=== PATIENT | female | born 1975 | race Caucasian/White ===

== ENCOUNTER 2019-04-19 14:40 | Outpatient (CLI) | payer MEDICARE, SELFPAY ==
--- NOTE | 2019-04-19 14:42 | MM_ITS ---
WS: [id number] BILATERAL DIGITAL SCREENING MAMMOGRAPHY WITH CAD CLINICAL INFORMATION: SCREENING HISTORY: Screening mammogram. COMPARISON: February 06, 2016 TECHNIQUE: Bilateral CC and MLO views. FINDINGS: The breasts are composed of heterogeneous fibroglandular density tissue, which can limit the detectio n of small underlying mass lesions. No suspicious mass, asymmetry, calcifications, or architectural d istortion. No evidence of malignancy. MM/[place] [id number] IMPRESSION: BI-RADS: 1-Negative FOLLOW UP: 1 Year Follow-up Recommend return to annual screening mammography.
== END 2019-04-19 14:41 | disposition home or self-care (01) ==
LOC: RADSHAW 14:40
PROVIDERS: Family Provider Family Medicine; PCP Family Medicine; Visit Provider Family Medicine
DX: Z12.31 Encounter for screening mammogram for malignant neoplasm of breast (principal)
CPT/HCPCS: 77067

== ENCOUNTER 2019-10-26 20:49 | Emergency (ER) | payer MEDICARE, SELFPAY ==
[2019-10-26 20:58] VITALS: BP 154/88; PULSE 98; RESP 20; TEMP 37.3; O2SAT 96; BMI 25.0
--- NOTE | 2019-10-26 21:05 | XRR_ITS ---
PROCEDURE INFORMATION: Exam: XR Chest, 1 View Exam date and time: 10/26/2019 10:07 PM Age: 44 years old Clinical indication: Type not specified; Patient HX: Chest pain x 1 day; Additional info: Cp TECHNIQUE: Imaging protocol: XR of the chest Views: 1 view. COMPARISON: CR Chest 1 [place] [id number] 08/23/2016 1:10 PM FINDINGS: Lungs: Unremarkable. No consolidation. Pleural space: Unremarkable. No pleural effusion. No pneumothorax. Heart/Mediastinum: Unremarkable. No cardiomegaly. Bones/joints: Unremarkable. XR/XR chest 1V portable [id number] IMPRESSION: No acute findings.
--- NOTE | 2019-10-26 21:05 | ECG_ITS ---
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 Measurements Intervals [place] Rate: 103 P: 66 CO: 108 QRS: 73 QRSD: 82 T: 27 QT: 327 QTc: 430 Interpretive Statements SINUS TACHYCARDIA WITH SHORT CO INTERVAL NONSPECIFIC T-WAVE ABNORMALITY Compared to ECG 08/23/2016 13:07:30 Short CO interval now present T-wave abnormality still present Electronically Signed On 10-28-2019 8:28:47 CDT by Ludmila Hanks M.D. [id number] f
[2019-10-26 22:09] LABS: Basophils % 0.2 %; Eosinophils # 0.1 10^3/uL (0.0-0.8); Eosinophils % 1.1 %; Hematocrit 40.6 % (37.0-47.0); Hemoglobin 13.3 g/dL (11.5-15.3); Lymphocytes # 1.5 10^3/uL (0.8-4.8); Lymphocytes % 28.2 %; Mean Corpuscular HGB Conc 32.8 g/dL (30.0-36.0); Mean Corpuscular Hemoglobin 28.8 pg (28.0-34.0); Mean Corpuscular Volume 87.9 fL (81-99); Mean Platelet Volume 9.4 fL (7.4-10.4); Monocytes # 0.5 10^3/uL (0.2-0.9); Monocytes % 10.1 %; Neutrophils # 3.22 10^3/uL (1.8-7.7); Neutrophils % 60.2 %; Nucleated Red Blood Cells % 0 %; Platelet Count 287 10^3/cmm (130-400); Red Blood Count 4.62 10^6/uL (4.1-5.3); White Blood Count 5.4 10^3/uL (4.0-10.0)
[2019-10-26 22:24] LABS: Alanine Aminotransferase 14 U/L (0-33); Albumin Level 4.5 g/dL (3.5-5.2); Alkaline Phosphatase 45 IU/L (35-105); Anion Gap 12.9 (5-19); Aspartate Amino Transferase 17 U/L (0-32); Blood Urea Nitrogen 11 mg/dL (6-20); Calcium 8.9 mg/dL (8.5-10.5); Carbon Dioxide 27 mmol/L (22-29); Chloride 103 mmol/L (98-107); Creatinine Clr Calc Pharmacy 151.1354; Globulin 2.4 g/dL (1.3-4.6); Glomerular Filtration Rate 134.7 mL/min (90-130); Glucose 99 mg/dL (65-115); Osmolality Calculated 287 mOsm/kg (285-295); Potassium 3.9 mmol/L (3.5-5.1); Sodium 139 mmol/L (136-145); Total Bilirubin 0.2 mg/dL (0.15-1.2); Total Protein 6.9 g/dL (6.6-8.7)
[2019-10-26 22:25] LABS: Troponin(5th) Baseline 6 ng/L (0-10)
[2019-10-26 22:31] VITALS: BP 125/90; PULSE 78; RESP 16; O2SAT 96
--- NOTE | 2019-10-26 22:34 | PC.NURSE ---
patient ambulated to bathroom ith clean catch package with education given by nurse
--- NOTE | 2019-10-26 22:49 | W.ED.ARRPALP ---
HPI - Arrhythmia/Palpitations General: Chief Complaint: Arrhythmia/Palpitations Stated Complaint: heart racing/palpitations/chest pains Time Seen by Provider: 10/26/19 22:18 Source: patient Mode of arrival: ambulatory Limitations: no limitations History of Present Illness: HPI narrative: 44-year-old female states she has been having palpitations over the last 2 days along with some chest pains. States pain is been sharp in nature. She states that she had severe palpitations earlier before arrival. States she is feeling improved currently. Denies any shortness of breath. Denies any worsening or improving factors. Associated symptoms: Deny nausea or vomiting Review of Systems Const: Denies: fever(s), chills, body aches or change in appetite Eyes: Denies: blurry vision or eye discomfort ENMT: Denies: throat pain or dental pain Card: Reports: chest pain and palpitations Resp: Denies: dyspnea GI: Denies: abdominal pain, nausea, vomiting or diarrhea : Denies: dysuria Musc: Denies: neck pain or back pain Skin/Breast: Denies: rash Neuro: Denies: headache(s) Psych: Denies: depression Leonel/Lymph: Denies: easy bruising All/Imm: Denies: urticaria Physical Exam Const: COMMON NORMALS: no acute distress, patient oriented x3 and healthy appearing HENMT: COMMON NORMALS: normocephalic and atraumatic HEAD & SCALP: normocephalic and atraumatic Eye: COMMON NORMALS: Equal, round and reactive pupils present and EOMs intact bilaterally PUPIL: Yes Equal, round and reactive pupils present Neck/C-Spine: COMMON NORMALS: full ROM and supple Chest: COMMONS NORMALS: normal inspection of the chest and normal palpation of entire chest wall Resp: COMMON NORMALS: normal respiratory effort, No retractions, No use of accessory muscles and clear to auscultation bilaterally AUSCULTATION: clear to auscultation bilaterally Cardio: COMMON NORMALS: regular rate, regular rhythm and No murmurs present (Cardio) RATE: regular rate RHYTHM: regular rhythm GI: COMMON NORMALS: Normal to inspection, nondistended, normoactive bowel sounds present, Soft to palpation, non-tender and no masses PALPATION: Yes Soft to palpation Extremity: COMMON NORMALS: normal to inspection and full ROM Neuro: COMMON NORMALS: patient oriented x3, moves all extremities and no focal motor deficits Psych: COMMON NORMALS: mental status grossly normal, Normal thought process present and cooperative THOUGHT PROCESS: Normal thought process present Skin: COMMON NORMALS: no rashes or lesions noted and no wounds GENERAL SKIN EXAM: no rashes or lesions noted Course Vital Signs: Vital signs: Vital Signs Temperature 99.2 F 10/26/19 20:58 Pulse Rate 70 10/27/19 00:04 Respiratory Rate 16 10/27/19 00:04 Blood Pressure 122/79 10/27/19 00:04 Pulse Oximetry 96 10/27/19 00:04 MDM - Arrhythmia/Palpitations MDM Narrative: Medical decision making narrative: Patient presents here with palpitations. Her EKGs and troponins here are normal. Patient is well-appearing here and is stable for discharge. She is to follow-up with PCP and is likely needing a Holter monitor outpatient. I informed her of this. She is to return if worsening. She understands and agrees to plan. Lab Data: Labs: Lab Results 10/26/19 10/26/19 10/26/19 Range/Units 21:54 21:54 21:54 WBC 5.4 (4.0-10.0) 10^3/ uL RBC 4.62 (4.1-5.3) 10^6/u L Hgb 13.3 (11.5-15.3) g/dL Hct 40.6 (37.0-47.0) % MCV 87.9 (81-99) fL MCH 28.8 (28.0-34.0) pg MCHC 32.8 (30.0-36.0) g/dL RDW 12.0 L (12.1-15.1) % Plt Count 287 (130-400) 10^3/c mm MPV 9.4 (7.4-10.4) fL Neut % (Auto) 60.2 % Lymph % (Auto) 28.2 % [place] % (Auto) 10.1 % Eos % (Auto) 1.1 % Baso % (Auto) 0.2 % Neut # (Auto) 3.22 (1.8-7.7) 10^3/u L Lymph # (Auto) 1.5 (0.8-4.8) 10^3/u L [place] # (Auto) 0.5 (0.2-0.9) 10^3/u L Eos # (Auto) 0.1 (0.0-0.8) 10^3/u L Baso # (Auto) 0.0 (0.0-0.1) 10^3/u L Nucleated RBC % (a uto) 0 % Nucleated RBCs # 0.0 /100WBC Sodium 139 (136-145) mmol/L Potassium 3.9 (3.5-5.1) mmol/L Chloride 103 (98-107) mmol/L Carbon Dioxide 27 (22-29) mmol/L Anion Gap 12.9 (5-19) BUN 11 (6-20) mg/dL Creatinine 0.5 (0.5-0.9) mg/dL GFR Calculation 134.7 H (90-130) mL/min Glucose 99 (65-115) mg/dL Calculated Osmolal ity 287 (285-295) mOsm/k g Calcium 8.9 (8.5-10.5) mg/dL Total Bilirubin 0.2 (0.15-1.2) mg/dL AST 17 (0-32) U/L ALT 14 (0-33) U/L Alkaline Phosphata se 45 (35-105) IU/L Troponin T Baselin e 6 (0-10) ng/L Troponin T 120 Min geoffrey (0-10) ng/L Delta Troponin T (0-10) ABS# Total Protein 6.9 (6.6-8.7) g/dL Albumin 4.5 (3.5-5.2) g/dL Globulin 2.4 (1.3-4.6) g/dL Urine Color (Yellow) Urine Appearance (CLEAR) Urine pH (5-7) Ur Specific Gravit y (1.005-1.030) Urine Protein (Negative) Urine Glucose (UA) (Normal) Urine Ketones (Negative) Urine Blood (Negative) Urine Nitrate (Negative) Urine Bilirubin (Negative) Urine Urobilinogen (Negative) mg/dL Ur Leukocyte Ame ase (Negative) Urine RBC (0-2) /hpf Urine WBC (0-5) /hpf Ur Squamous Epith Cells (0-5) /hpf Amorphous Sediment Urine Bacteria (NONE) /hpf 10/26/19 10/26/19 Range/Units 22:39 23:54 WBC (4.0-10.0) 10^3/ uL RBC (4.1-5.3) 10^6/u L Hgb (11.5-15.3) g/dL Hct (37.0-47.0) % MCV (81-99) fL MCH (28.0-34.0) pg MCHC (30.0-36.0) g/dL RDW (12.1-15.1) % Plt Count (130-400) 10^3/c mm MPV (7.4-10.4) fL Neut % (Auto) % Lymph % (Auto) % [place] % (Auto) % Eos % (Auto) % Baso % (Auto) % Neut # (Auto) (1.8-7.7) 10^3/u L Lymph # (Auto) (0.8-4.8) 10^3/u L [place] # (Auto) (0.2-0.9) 10^3/u L Eos # (Auto) (0.0-0.8) 10^3/u L Baso # (Auto) (0.0-0.1) 10^3/u L Nucleated RBC % (a uto) % Nucleated RBCs # /100WBC Sodium (136-145) mmol/L Potassium (3.5-5.1) mmol/L Chloride (98-107) mmol/L Carbon Dioxide (22-29) mmol/L Anion Gap (5-19) BUN (6-20) mg/dL Creatinine (0.5-0.9) mg/dL GFR Calculation (90-130) mL/min Glucose (65-115) mg/dL Calculated Osmolal ity (285-295) mOsm/k g Calcium (8.5-10.5) mg/dL Total Bilirubin (0.15-1.2) mg/dL AST (0-32) U/L ALT (0-33) U/L Alkaline Phosphata se (35-105) IU/L Troponin T Baselin e (0-10) ng/L Troponin T 120 Min geoffrey 6.00 (0-10) ng/L Delta Troponin T 0 (0-10) ABS# Total Protein (6.6-8.7) g/dL Albumin (3.5-5.2) g/dL Globulin (1.3-4.6) g/dL Urine Color Straw (Yellow) Urine Appearance Clear (CLEAR) Urine pH 6.5 (5-7) Ur Specific Gravit y 1.010 (1.005-1.030) Urine Protein Neg (Negative) Urine Glucose (UA) Norm (Normal) Urine Ketones Negative (Negative) Urine Blood Neg (Negative) Urine Nitrate Negative (Negative) Urine Bilirubin Neg (Negative) Urine Urobilinogen Norm (Negative) mg/dL Ur Leukocyte Ame ase Negative (Negative) Urine RBC None (0-2) /hpf Urine WBC None (0-5) /hpf Ur Squamous Epith Cells None (0-5) /hpf Amorphous Sediment Not Reportable Urine Bacteria None (NONE) /hpf Imaging Data^: CXR: Attestation: I personally reviewed and interpreted this imaging study as follows: My impression: no acute abnormality EKG Data^: EKG 1: Attestation: I personally reviewed and interpreted this EKG as follows: EKG interpretation date: 10/26/19 EKG interpretation time: 21:06 Interpretation: sinus tach hr [address] or t wave abnormalities qrs 82 qtc 397 Discharge Plan Discharge Patient Disposition: Home Clinical Impression: Palpitations Condition: Stable Discharge Orders: Discharge Order (Routine); Ordered 10/27/19 Ordered By: Britney Gamble Referrals: Leonie Snyder MD [Primary Care Provider] - Discharge Diet: Advance as tolerated Discharge Activity: Resume usual activity Patient Instructions: Palpitations (ED) Coding Level of Care Code ED Gas Station Supervisor for Chg Fwd Exam Comprehensive
[2019-10-26 23:02] LABS: Bilirubin Urine Neg (Negative); Blood Urine Neg (Negative); Glucose Urine UA Norm (Normal); Ketones Urine Negative (Negative); Leukocyte Esterase Urine Negative (Negative); Nitrate Urine Negative (Negative); Protein Urine Neg (Negative); Urine Appearance Clear (CLEAR); Urine Color Straw (Yellow); Urobilinogen Urine Norm (Negative); pH Urine 6.5 (5-7)
--- NOTE | 2019-10-26 23:05 | ECG_ITS ---
[facility] Test Date: 2019-10-26 Pat Name: Yanique Oconnell Department: Room: Gender: Female Desktop Support Consultant: : 1975 Requested By: Britney Gamble Order Number: [id number] Juma MD: Ludmila Hanks M.D. Measurements Intervals [place] Rate: 71 P: 41 MT: 147 QRS: 66 QRSD: 86 T: 51 QT: 372 QTc: 407 Interpretive Statements SINUS RHYTHM Compared to ECG 08/23/2016 13:07:30 Sinus tachycardia no longer present T-wave abnormality no longer present Electronically Signed On 10-28-2019 9:08:11 CDT by Ludmila Hanks M.D. [id number]
[2019-10-26 23:25] VITALS: BP 127/74; PULSE 71; RESP 16; O2SAT 94
[2019-10-27 00:04] VITALS: BP 122/79; PULSE 70; RESP 16; O2SAT 96
[2019-10-27 00:27] LABS: Troponin 5 2HR Delta 0 ABS# (0-10)
[2019-10-27 00:49] VITALS: BP 109/71; PULSE 74; RESP 17; O2SAT 96
== END 2019-10-27 00:49 | disposition home or self-care (01) ==
PROVIDERS: Emergency Provider Emergency Medicine; PCP Family Medicine
DX: R00.2 Palpitations (principal)
CPT/HCPCS: 12345; 36415; 71045; 80053; 81001; 84484; 85025; 93005; 99283; 99284

== ENCOUNTER 2020-01-19 07:46 | Outpatient (CLI) | payer MEDICARE, SELFPAY ==
--- NOTE | 2020-01-19 | CT_ITS ---
WS: [id number] CT HEAD TECHNIQUE: Noncontrast and contrast-enhanced CT of the head. CLINICAL INFORMATION: CONCUSSION WITH LOC COMPARISON: MRI 2016 DLP: 2116.[address] scans at [facility] use at least one of these dose optimization techniques: automat ed exposure control; mA and/or kV adjustment per patient size (includes targeted exams where dose is matched to clinical indication); or iterative reconstruction. FINDINGS: No evidence of intracranial hemorrhage or mass effect. Ventricular system and basal cisterns are shaw nt. Normal graham-white differentiation. No abnormal intracranial enhancement. Mastoid air cells and paranasal sinuses are well aerated. Parti al opacification of sphenoid sinus. Prior postoperative changes occipital craniectomy. CT/CT head wo/w con [id number] IMPRESSION: 1. No evidence of intracranial hemorrhage or mass effect. 2. No abnormal intracranial enhancement. 3. Prior occipital craniectomy. 4. No acute intracranial findings.
[2020-01-19] MEDS: iohexol 300 mg/mL 100 mL Btl IV (08:46)
== END 2020-01-19 07:47 | disposition home or self-care (01) ==
LOC: RADWPI 07:50
PROVIDERS: PCP Family Medicine; Visit Provider Family Medicine
DX: S06.0X9A Concussion with loss of consciousness of unspecified duration, initial encounter (principal); R42 Dizziness and giddiness; X58.XXXA Exposure to other specified factors, initial encounter
CPT/HCPCS: 70470; Q9967

== ENCOUNTER 2020-01-21 16:41 | Emergency (ER) | payer MEDICARE, SELFPAY ==
--- NOTE | 2020-01-21 16:42 | XRR_ITS ---
PROCEDURE INFORMATION: Exam: XR Chest, 1 View Exam date and time: 01/21/2020 5:02 PM Age: 44 years old Clinical indication: Chest pain; Type not specified; Additional info: Cp TECHNIQUE: Imaging protocol: XR of the chest Views: 1 view. COMPARISON: CR XR chest 1V portable [id number] 10/26/2019 9:57 PM FINDINGS: Lungs: Unremarkable. No consolidation. Pleural space: Unremarkable. No pleural effusion. No pneumothorax. Heart/Mediastinum: Unremarkable. No cardiomegaly. Bones/joints: Unremarkable. XR/XR chest 1V portable [id number] IMPRESSION: No acute findings.
--- NOTE | 2020-01-21 16:43 | ECG_ITS ---
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
[2020-01-21 16:46] VITALS: BP 158/85; PULSE 96; RESP 18; TEMP 36.2; O2SAT 97; BMI 25.0
[2020-01-21 17:00] VITALS: BP 115/81; PULSE 98; RESP 19; O2SAT 92
--- NOTE | 2020-01-21 17:00 | ED_ITS ---
HPI - Chest Pain General: Chief Complaint: Chest Pain Stated Complaint: CP, JAW PAIN Time Seen by Provider: 01/21/20 16:42 Source: patient Mode of arrival: ambulatory Limitations: no limitations History of Present Illness: HPI narrative: 44-year-old female states starting today at 730 she is having some chest pain that went to her left arm along with palpitations. States she had SVT in the past this felt a little different. She does have some tachycardia here and heart rate was currently 108. She denies any shortness of breath denies any worsening or improving factors. She has had no vomiting or diarrhea. Associated symptoms: Reports palpitations; Deny abdominal pain, dyspnea, fever(s), nausea or vomiting Review of Systems Const: Denies: fever(s), chills, body aches or change in appetite Eyes: Denies: blurry vision or eye discomfort ENMT: Denies: throat pain or dental pain Card: Reports: chest pain and palpitations Resp: Denies: dyspnea GI: Denies: abdominal pain, nausea, vomiting or diarrhea : Denies: dysuria Musc: Denies: neck pain or back pain Skin/Breast: Denies: rash Neuro: Denies: headache(s) Psych: Denies: depression Leonel/Lymph: Denies: easy bruising All/Imm: Denies: urticaria Physical Exam Const: COMMON NORMALS: no acute distress, patient oriented x3 and healthy appearing HENMT: COMMON NORMALS: normocephalic and atraumatic HEAD & SCALP: normocephalic and atraumatic Eye: COMMON NORMALS: Equal, round and reactive pupils present and EOMs intact bilaterally PUPIL: Yes Equal, round and reactive pupils present Neck/C-Spine: COMMON NORMALS: full ROM and supple Chest: COMMONS NORMALS: normal inspection of the chest and normal palpation of entire chest wall Resp: COMMON NORMALS: normal respiratory effort, No retractions, No use of accessory muscles and clear to auscultation bilaterally AUSCULTATION: clear to auscultation bilaterally Cardio: COMMON NORMALS: regular rhythm and No murmurs present (Cardio) RATE: tachycardic RHYTHM: regular rhythm GI: COMMON NORMALS: Normal to inspection, nondistended, normoactive bowel sounds present, Soft to palpation, non-tender and no masses PALPATION: Yes Soft to palpation Extremity: COMMON NORMALS: normal to inspection and full ROM Neuro: COMMON NORMALS: patient oriented x3, moves all extremities and no focal motor deficits Psych: COMMON NORMALS: mental status grossly normal, Normal thought process present and cooperative THOUGHT PROCESS: Normal thought process present Skin: COMMON NORMALS: no rashes or lesions noted and no wounds GENERAL SKIN EXAM: no rashes or lesions noted Course Vital Signs: Vital signs: Vital Signs Temperature 97.2 F L 01/21/20 16:46 Pulse Rate 86 01/21/20 19:37 Respiratory Rate 18 01/21/20 19:37 Blood Pressure 122/81 01/21/20 19:37 Pulse Oximetry 98 01/21/20 19:37 MDM - Chest Pain MDM Narrative: Medical decision making narrative: Yanique presents here with chest pain is atypical in nature. Both her EKGs and troponins are normal here and her D-dimer is normal as well. She has no signs of dissection or acute coronary syndrome. She is stable for discharge and is to follow-up with PCP in 3 to 5 days return to ER if worsening. She understands and agrees to plan. Lab Data: Labs: Lab Results 01/21/20 01/21/20 01/21/20 Range/Units 17:10 17:10 17:10 WBC 7.6 (4.0-10.0) 10^3/ uL RBC 4.88 (4.1-5.3) 10^6/u L Hgb 13.9 (11.5-15.3) g/dL Hct 42.7 (37.0-47.0) % MCV 87.5 (81-99) fL MCH 28.5 (28.0-34.0) pg MCHC 32.6 (30.0-36.0) g/dL RDW 11.8 L (12.1-15.1) % Plt Count 296 (130-400) 10^3/c mm MPV 9.5 (7.4-10.4) fL Neut % (Auto) 73.3 % Lymph % (Auto) 19.3 % [place] % (Auto) 6.5 % Eos % (Auto) 0.5 % Baso % (Auto) 0.1 % Neut # (Auto) 5.54 (1.8-7.7) 10^3/u L Lymph # (Auto) 1.5 (0.8-4.8) 10^3/u L [place] # (Auto) 0.5 (0.2-0.9) 10^3/u L Eos # (Auto) 0.0 (0.0-0.8) 10^3/u L Baso # (Auto) 0.0 (0.0-0.1) 10^3/u L Nucleated RBC % (a uto) 0 % Nucleated RBCs # 0.0 /100WBC D-Dimer (0-0.59) ug/mIFE U Sodium 140 (136-145) mmol/L Potassium 4.0 (3.5-5.1) mmol/L Chloride 104 (98-107) mmol/L Carbon Dioxide 25 (22-29) mmol/L Anion Gap 15.0 (5-19) BUN 13 (6-20) mg/dL Creatinine 0.4 L (0.5-0.9) mg/dL GFR Calculation 174.2 H (90-130) mL/min Glucose 102 (65-115) mg/dL Calculated Osmolal ity 290 (285-295) mOsm/k g Calcium 9.1 (8.5-10.5) mg/dL Total Bilirubin 0.2 (0.15-1.2) mg/dL AST 14 (0-32) U/L ALT 11 (0-33) U/L Alkaline Phosphata se 51 (35-105) IU/L Troponin T Baselin e 6 (0-10) ng/L Troponin T 120 Min geoffrey (0-10) ng/L Delta Troponin T (0-10) ABS# Total Protein 6.5 L (6.6-8.7) g/dL Albumin 4.4 (3.5-5.2) g/dL Globulin 2.1 (1.3-4.6) g/dL 01/21/20 01/21/20 Range/Units 17:10 18:54 WBC (4.0-10.0) 10^3/ uL RBC (4.1-5.3) 10^6/u L Hgb (11.5-15.3) g/dL Hct (37.0-47.0) % MCV (81-99) fL MCH (28.0-34.0) pg MCHC (30.0-36.0) g/dL RDW (12.1-15.1) % Plt Count (130-400) 10^3/c mm MPV (7.4-10.4) fL Neut % (Auto) % Lymph % (Auto) % [place] % (Auto) % Eos % (Auto) % Baso % (Auto) % Neut # (Auto) (1.8-7.7) 10^3/u L Lymph # (Auto) (0.8-4.8) 10^3/u L [place] # (Auto) (0.2-0.9) 10^3/u L Eos # (Auto) (0.0-0.8) 10^3/u L Baso # (Auto) (0.0-0.1) 10^3/u L Nucleated RBC % (a uto) % Nucleated RBCs # /100WBC D-Dimer 0.32 (0-0.59) ug/mIFE U Sodium (136-145) mmol/L Potassium (3.5-5.1) mmol/L Chloride (98-107) mmol/L Carbon Dioxide (22-29) mmol/L Anion Gap (5-19) BUN (6-20) mg/dL Creatinine (0.5-0.9) mg/dL GFR Calculation (90-130) mL/min Glucose (65-115) mg/dL Calculated Osmolal ity (285-295) mOsm/k g Calcium (8.5-10.5) mg/dL Total Bilirubin (0.15-1.2) mg/dL AST (0-32) U/L ALT (0-33) U/L Alkaline Phosphata se (35-105) IU/L Troponin T Baselin e (0-10) ng/L Troponin T 120 Min geoffrey 6.00 (0-10) ng/L Delta Troponin T 0 (0-10) ABS# Total Protein (6.6-8.7) g/dL Albumin (3.5-5.2) g/dL Globulin (1.3-4.6) g/dL Imaging Data^: CXR: Attestation: I personally reviewed and interpreted this imaging study as follows: My impression: no abnormalities EKG Data^: EKG 1: Attestation: I personally reviewed and interpreted this EKG as follows: EKG interpretation date: 01/21/20 EKG interpretation time: 17:00 Interpretation: nsr hr [address] or t wave abnormalities qrs 72 [id number] EKG 2: Attestation: I personally reviewed and interpreted this EKG as follows: EKG interpretation date: 01/21/20 EKG interpretation time: 18:49 Interpretation: nsr hr [address] or twave abnormalities qrs 78 qtc 402 Discharge Plan Discharge Patient Disposition: Home Clinical Impression: Chest pain Condition: Stable Discharge Orders: Discharge ED (Routine); Ordered 01/21/20 Ordered By: Britney Gamble Referrals: Leonie Snyder MD [Primary Care Provider] - 1-3 days Discharge Diet: Advance as tolerated Discharge Activity: Resume usual activity Patient Instructions: Chest Pain (ED) Coding Level of Care Code ED Computer Technology Trainer for Chg Fwd Exam Comprehensive
[2020-01-21] MEDS: LORazepam 2 mg/mL INJ 1 mL 1 MG IVP (17:06)
[2020-01-21 17:22] LABS: Basophils % 0.1 %; Eosinophils % 0.5 %; Hematocrit 42.7 % (37.0-47.0); Hemoglobin 13.9 g/dL (11.5-15.3); Lymphocytes # 1.5 10^3/uL (0.8-4.8); Lymphocytes % 19.3 %; Mean Corpuscular HGB Conc 32.6 g/dL (30.0-36.0); Mean Corpuscular Hemoglobin 28.5 pg (28.0-34.0); Mean Corpuscular Volume 87.5 fL (81-99); Mean Platelet Volume 9.5 fL (7.4-10.4); Monocytes # 0.5 10^3/uL (0.2-0.9); Monocytes % 6.5 %; Neutrophils # 5.54 10^3/uL (1.8-7.7); Neutrophils % 73.3 %; Nucleated Red Blood Cells % 0 %; Platelet Count 296 10^3/cmm (130-400); Red Blood Count 4.88 10^6/uL (4.1-5.3); Red Cell Distribution Width 11.8 % (12.1-15.1); White Blood Count 7.6 10^3/uL (4.0-10.0)
[2020-01-21 17:30] VITALS: BP 109/77; PULSE 83; RESP 19; O2SAT 93
[2020-01-21 17:35] LABS: D Dimer 0.32 ug/mIFEU (0-0.59)
[2020-01-21 17:44] LABS: Alanine Aminotransferase 11 U/L (0-33); Albumin Level 4.4 g/dL (3.5-5.2); Alkaline Phosphatase 51 IU/L (35-105); Aspartate Amino Transferase 14 U/L (0-32); Blood Urea Nitrogen 13 mg/dL (6-20); Calcium 9.1 mg/dL (8.5-10.5); Carbon Dioxide 25 mmol/L (22-29); Chloride 104 mmol/L (98-107); Globulin 2.1 g/dL (1.3-4.6); Glomerular Filtration Rate 174.2 mL/min (90-130); Glucose 102 mg/dL (65-115); Osmolality Calculated 290 mOsm/kg (285-295); Sodium 140 mmol/L (136-145); Total Bilirubin 0.2 mg/dL (0.15-1.2); Total Protein 6.5 g/dL (6.6-8.7)
[2020-01-21 17:45] LABS: Troponin(5th) Baseline 6 ng/L (0-10)
[2020-01-21 19:23] LABS: Troponin 5 2HR Delta 0 ABS# (0-10)
[2020-01-21 19:37] VITALS: BP 122/81; PULSE 86; RESP 18; O2SAT 98
--- NOTE | 2020-01-21 22:43 | ECG_ITS ---
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
== END 2020-01-21 19:38 | disposition home or self-care (01) ==
PROVIDERS: Emergency Provider Emergency Medicine; PCP Family Medicine
DX: R07.9 Chest pain, unspecified (principal)
CPT/HCPCS: 12345; 71045; 80053; 84484; 85025; 85378; 93005; 96374; 99282; 99284; J2060

== ENCOUNTER 2020-12-30 13:51 | Outpatient (CLI) | payer MEDICARE, SELFPAY ==
--- NOTE | 2020-12-30 13:55 | XR_ITS ---
WS: [id number] PROCEDURE: XR chest 2V* [id number] CLINICAL INFORMATION: CHONDROCOSTAL JUNCTION SYNDROME, COSTOCHONDRITIS COMPARISON: January 21, 2020 FINDINGS: Heart: Normal cardiac silhouette. Lungs: Lungs are clear. No consolidation or pleural fluid. No acute pulmonary infiltrates. Bones: Normal visualized bony structures. XR/XR chest 2V* [id number] IMPRESSION: Normal chest
== END 2020-12-30 13:52 | disposition home or self-care (01) ==
PROVIDERS: PCP Family Medicine; Visit Provider Family Medicine
DX: M94.0 Chondrocostal junction syndrome [Tietze] (principal)
CPT/HCPCS: 71046

== ENCOUNTER 2021-02-11 15:05 | Outpatient (CLI) | payer MEDICARE, SELFPAY ==
--- NOTE | 2021-02-11 15:12 | US_ITS ---
WS: [id number] TRANSABDOMINAL PELVIC AND TRANSVAGINAL PELVIC ULTRASOUND HISTORY: DUB/ABNORMAL UTERINE VAGINAL BLEEDING COMPARISON: None available. Uterus: 7.7 cm x 4.5 cm x 3.4 cm. Normal size anteverted uterus. No fibroid or mass. Small amount of fluid along the cervical canal. Endometrium: 1.4 cm. Normal size endometrium. Right ovary: 4.2 cm x 2.9 cm x 3.8 cm. There is a large complex cyst associated with the RIGHT ovary. Cyst measures 3.7 x 2.7 x 3.2 cm. There is a thin septation or 2 separate adjacent cysts. There is t hrough transmission. No increased vascularity. The normal adjacent ovary does contain normal vascular ity. Left ovary: 1.6 cm x 1.4 cm x 1.6 cm. Small caliber. Vascularity is difficult to visualize but this i s probably due to the position and small caliber. No enlargement. No free fluid. US/US pelvic with transvaginal IMPRESSION: 1. Complex RIGHT ovarian cyst measures 3.7 x 2.7 x 3.2 cm. 2. Normal endometrium.
== END 2021-02-11 15:06 | disposition home or self-care (01) ==
LOC: RAD 15:09
PROVIDERS: PCP Family Medicine; Visit Provider Family Medicine
DX: N93.8 Other specified abnormal uterine and vaginal bleeding (principal); N83.291 Other ovarian cyst, right side
CPT/HCPCS: 76830; 76856

== ENCOUNTER → 2021-03-20 14:51 | Outpatient (BNVA) | payer MEDICARE, SELFPAY | PROVIDERS: PCP Family Medicine; Visit Provider Obstetrics & Gynecology | DX: N93.9 Abnormal uterine and vaginal bleeding, unspecified (principal) | CPT/HCPCS: 81500; 88305 ==

== ENCOUNTER 2021-05-19 06:47 | Outpatient (CLI) | payer MEDICARE, SELFPAY ==
--- NOTE | 2021-05-19 07:15 | US_ITS ---
WS: [id number] TRANSABDOMINAL PELVIC AND TRANSVAGINAL PELVIC ULTRASOUND HISTORY: Follow-up ovarian cyst. RIGHT. COMPARISON: 02/11/2021 Uterus: 8.1 cm x 3.9 cm x 3.3 cm. Normal size anteverted uterus. There is a small amount of fluid in the cervical canal. Endometrium: 1.1 cm. Normal trilaminar appearance of the endometrium. No mass or increased vascularit y. Right ovary: 2.9 cm x 1.5 cm x 2.7 cm. Normal size and Doppler. The previously described complex RIGH T ovarian cyst has resolved. Left ovary: 1.2 cm x 1.5 cm x 1.0 cm. Small ovary. No mass. Normal vascularity. No free fluid in the cul-de-sac. US/US pelvic with transvaginal IMPRESSION: 1. Interval complete resolution of the recently described complex RIGHT ovaria n cyst. 2. Normal pelvic ultrasound.
== END 2021-05-19 06:48 | disposition home or self-care (01) ==
LOC: RAD 06:48
PROVIDERS: PCP Family Medicine; Visit Provider Obstetrics & Gynecology
DX: N83.8 Other noninflammatory disorders of ovary, fallopian tube and broad ligament (principal)
CPT/HCPCS: 76830; 76856

== ENCOUNTER 2021-06-12 13:54 | Outpatient (CLI) | payer MEDICARE, SELFPAY ==
--- NOTE | 2021-06-12 14:25 | MM_ITS ---
WS: [id number] BILATERAL 3D TOMOSYNTHESIS DIGITAL SCREENING MAMMOGRAPHY WITH CAD CLINICAL INFORMATION: SCREENING HISTORY: Screening mammogram. Pain and soreness COMPARISON: April 19, 2019 TECHNIQUE: Bilateral CC and MLO views. FINDINGS: The breasts are composed of heterogeneous fibroglandular density tissue, which can limit the detectio n of small underlying mass lesions. Stable dense breast tissue upper outer LEFT breast. No suspicious mass, asymmetry, calcifications, or architectural distortion. No evidence of malignancy. MM/[place] [id number] IMPRESSION: BI-RADS: 2-Benign FOLLOW UP: 1 Year Follow-up Recommend return to annual screening mammography.
== END 2021-06-12 13:55 | disposition home or self-care (01) ==
LOC: RAD 13:55
PROVIDERS: PCP Family Medicine; Visit Provider Family Medicine
DX: Z12.31 Encounter for screening mammogram for malignant neoplasm of breast (principal)
CPT/HCPCS: 77063; 77067

== ENCOUNTER → 2021-10-21 12:54 | Outpatient (BNVA) | payer MEDICARE, SELFPAY | PROVIDERS: PCP Family Medicine; Visit Provider Surgery | DX: Z87.19 Personal history of other diseases of the digestive system (principal); Z12.11 Encounter for screening for malignant neoplasm of colon | CPT/HCPCS: 99203 ==

== ENCOUNTER 2021-11-07 05:41 | Day surgery (SDC) | payer MEDICARE, SELFPAY ==
[2021-11-05 12:38] VITALS: BMI 20.3
[2021-11-07 06:03] VITALS: BP 114/78; PULSE 78; RESP 18; TEMP 36.2; O2SAT 99
[2021-11-07] MEDS: sodium chloride 0.9% 1,000 ML 30 ML IV (06:10)
[2021-11-07 06:11] LABS: OR HCG Qualitative Urine Negative (Negative)
--- NOTE | 2021-11-07 06:14 | W.PM.OPSUD ---
Surgery/Procedure H&P Update DATE OF PROCEDURE: November 07, 2021 DATE H&P PERFORMED: 10/21/21 PLANNED PROCEDURE: Operation Date: 11/07/21 07:00 Proposed Procedures p EGD and colonoscopy 02998,59950,R10.9(Not Applicable) - DO rubén Brownlee Colonoscopy(Not Applicable) - Reji Brady DO
--- NOTE | 2021-11-07 06:53 | ANES.PREANE2 ---
Pre-Anesthetic Assessment Height/Weight: Height 1.7 m Weight 58.967 kg Temp Pulse Resp BP Pulse Ox O2 Del Method 97.2 F L 78 18 114/78 99 11/07/21 06:03 11/07/21 06:03 11/07/21 06:03 11/07/21 06:03 11/07/21 06:03 11/07/21 06:03 Preop Diagnosis: screening Operation Date: 11/07/21 07:00 Proposed Procedures p EGD and colonoscopy [id number],R10.9(Not Applicable) - Reji Brady DO s Colonoscopy(Not Applicable) - Reji Brady DO Familial anesthetic complications: none Was Beta Melissa taken within 24 hours: N/A Was Clonidine taken within 24 hours: N/A Last intake: Intake Last Liquid Date 11/06/21 Last Liquid Time 23:30 Last Solid Date 11/05/21 Last Solid Time 20:00 Last Intake: 23:00 Social No alcohol and No tobacco Exam alert, oriented x 3, clear to auscultation bilaterally and regular rate & rhythm Airway Submandibular: within normal limits Cervical ROM: within normal limits Mallampati: Class II Dentition: full Pulmonary None reported CV/HEM Palpitations None reported Hepatic None reported GI Gastroesophageal Reflux Disease Metabolic None reported Musc/skel Lower Back Pain Neuropsych None reported Anesthetic Plan ASA status: 2 Anesthesia: MAC Risk of > 500 ml blood loss (7ml/kg in children): No Medications/Allergies Home Medications Medication Instructions Recorded Confirmed Last Taken Type hydrocodone 5 mg-acetaminophen 325 1 tab PO BID PRN Pain 04/11/20 11/05/21 11/06/21 History mg tablet morphine 30 mg tablet,extended 30 mg PO Q12H 04/11/20 11/05/21 11/03/21 History release (MS Contin) tizanidine 4 mg capsule 4 mg PO BID PRN unknown 04/11/20 11/05/21 10/23/21 History baclofen 10 mg tablet 10 mg PO DAILY PRN unknown 03/20/21 11/05/21 10/23/21 History gabapentin 100 mg capsule 100 mg PO QID 05/05/21 11/05/21 11/06/21 History Allergies Allergy/AdvReac Type Severity Reaction Status Date / Time amoxicillin Allergy ALGY-Rash Verified 10/21/21 13:05 Current Medications Generic Name Dose Route Start Last Admin Trade Name Jovana PRN Reason Stop Dose Admin Sodium Chloride 1,000 mls @ 30 mls/hr 11/07/21 06:00 11/07/21 06:10 Sodium Chloride 0.9% IV 11/08/21 05:59 30 mls/hr .Q24H LO Administration PFSH Anesthesia Medical History (Updated 10/21/21 @ 13:52 by Reji Brady DO) Abnormal uterine bleeding (AUB) History of allergic rhinitis History of back pain History of bronchitis History of bursitis LEFT HIP History of Chiari malformation History of concussion History of gastroesophageal reflux (GERD) History of migraine headaches History of neck pain History of seizure History of sinusitis Surgical History History of craniotomy OCCIPITAL CRANIOTOMY History of sinus surgery SPHENOIDECTOMY Family History Grandfather Cancer Maternal-lung Father Cancer Renal Denies family history of Diabetes CAD (coronary artery disease) Clotting disorder Hyperlipidemia Chronic kidney disease (CKD) Bleeding disorder Hypertension Thyroid disease Stroke Social History Smoking and tobacco status: never smoked Marital status: Special claudia needs: No Data Anesthesia Cardiac Studies: No Data to Display
[2021-11-07 07:25] VITALS: BP 107/68; PULSE 77; RESP 16; TEMP 36.1; O2SAT 100
[2021-11-07 07:37] VITALS: BP 109/76; PULSE 79; RESP 16; O2SAT 100
--- NOTE | 2021-11-07 14:05 | ANE.PACU2 ---
Inpatient post-anesthesia follow up: Airway intact: Yes Vital signs: Temperature 97.0 F Pulse Rate 79 Respiratory Rate 16 Blood Pressure 109/76 Pulse Oximetry 100 Oxygen Delivery Me thod Room Air Oxygen Flow Rate 3 Fraction of Inspir ed Oxygen Hydration adequate: Yes Nausea and vomiting: No Pain level: 1 Mental status: Baseline
== END 2021-11-07 07:46 | disposition home or self-care (01) ==
PROVIDERS: Anesthesiology; PCP Family Medicine; Visit Provider Surgery
PROC: 0DJ08ZZ Inspection of Upper Intestinal Tract, Via Natural or Artificial Opening Endoscopic (ICD-10-PCS; CPT 43235; principal; 2021-11-07 07:00)
PROC: 0DJD8ZZ Inspection of Lower Intestinal Tract, Via Natural or Artificial Opening Endoscopic (ICD-10-PCS; CPT 45378; 2021-11-07 07:00)
DX: Z12.11 Encounter for screening for malignant neoplasm of colon (principal); R10.9 Unspecified abdominal pain; K64.8 Other hemorrhoids; K29.50 Unspecified chronic gastritis without bleeding; B96.81 Helicobacter pylori [H. pylori] as the cause of diseases classified elsewhere; K21.9 Gastro-esophageal reflux disease without esophagitis
CPT/HCPCS: 43239; 45378; 81025; 84703; 88305; 88342; G0121; J2704; J7030

== ENCOUNTER → 2021-11-21 11:33 | Outpatient (BNVA) | payer MEDICARE, SELFPAY | PROVIDERS: PCP Family Medicine; Visit Provider Surgery | DX: Z09 Encounter for follow-up examination after completed treatment for conditions other than malignant neoplasm (principal); K29.70 Gastritis, unspecified, without bleeding; B96.81 Helicobacter pylori [H. pylori] as the cause of diseases classified elsewhere | CPT/HCPCS: 99212 ==

== ENCOUNTER 2022-01-02 11:29 | Outpatient (CLI) | payer MEDICARE, SELFPAY ==
--- NOTE | 2022-01-02 | CT_ITS ---
WS: [id number] CT CHEST, ABDOMEN AND PELVIS WITH CONTRAST HISTORY: Weight loss. TECHNIQUE: Contiguous 5 mm axial imaging performed through the chest, abdomen and pelvis with IV cont rast, oral contrast has been provided. Coronal and sagittal reformats chest. Coronal and sagittal ref ormats through the abdomen and pelvis. All CT scans at [facility] use at least one of these d ose optimization techniques: automated exposure control; mA and/or kV adjustment per patient size (in cludes targeted exams where dose is matched to clinical indication); or iterative reconstruction. CONTRAST: Omnipaque 350; 95 mL IV. DLP: 1241.11 mGy.cm COMPARISON: None available. Chest CT: 3 mm nodule is noncalcified anterior RIGHT upper lobe. No additional nodules or masses. Monty gs are clear. No mediastinal or hilar adenopathy. Normal aorta and pulmonary artery. Heart size is no rmal. No pericardial or pleural effusions. Very mildly enlarged but normally enhancing RIGHT thyroid extends substernal. Abdomen CT: Normal size liver. Focal hepatic steatosis along the falciform ligament. Simple cyst LEFT lobe measures 1.2 cm. No bile duct dilatation. No portal vein thrombus. Normal size spleen. Normal g allbladder. No pancreatic abnormality or dilatation. No adrenal mass. Normal size kidneys. Normal aorta. Well-distended stomach. No small bowel obstruction. Mild diffuse constipation. No evidence for append icitis. Pelvic CT: Mild fluid distended endometrium. No adnexal masses. No adenopathy. No osseous destruction. CT/CT chest abd pel w con* IMPRESSION: 1. No acute abnormalities are noted within the chest, abdomen or pelvis. 2. No adenopathy in the chest, abdomen or pelvis. 3. No organomegaly or mass. 4. Mild fluid distention of the endometrium may be related to the patient's me nstrual cycle. If menstrual cycles or abnormal consider transvaginal pelvic ult rasound evaluation of the uterus and adnexa.
[2022-01-02] MEDS: iohexol 350 mg/mL 500 mL Btl (per mL) IV (13:30)
[2022-01-02] MEDS: iohexol 350 mg/mL 500 mL Btl (per mL) PO (13:30)
== END 2022-01-02 11:30 | disposition home or self-care (01) ==
LOC: RAD 11:30
PROVIDERS: PCP Family Medicine; Visit Provider Family Medicine
DX: R63.4 Abnormal weight loss (principal)
CPT/HCPCS: 71260; 74177; Q9967

== ENCOUNTER 2022-10-02 13:28 | Outpatient (CLI) | payer MEDICARE, SELFPAY ==
--- NOTE | 2022-10-02 13:38 | US_ITS ---
WS: [id number] US pelv w/transvag [id number] HISTORY: OTHER SPECIFIED ABNORMAL UTERINE VAGINAL BLEEDING COMPARISON: None available. Uterus: 8.4 cm x 4.1 cm x 3.3 cm. Normal size anteverted uterus. No fibroid or mass. Endometrium: 0.3 cm. Normal. No increased vascularity or mass. Right ovary: 2.1 cm x 2.0 cm x 1.0 cm. Normal size and vascularity, no cystic or solid masses. Left ovary: 1.3 cm x 0.7 cm x 1.6 cm. Normal size and vascularity, no cystic or solid masses. No free fluid in the cul-de-sac. IMPRESSION: Normal pelvic ultrasound. Normal endometrium.
== END 2022-10-02 13:29 | disposition home or self-care (01) ==
PROVIDERS: PCP Family Medicine; Visit Provider Family Medicine
DX: N93.8 Other specified abnormal uterine and vaginal bleeding (principal)
CPT/HCPCS: 76830; 76856

== ENCOUNTER 2023-12-22 10:45 | Outpatient (CLI) | payer MEDICARE, SELFPAY ==
--- NOTE | 2023-12-22 10:53 | MM_ITS ---
WS: [id number] SCREENING DIGITAL BREAST TOMOSYNTHESIS MAMMOGRAM WITH CAD HISTORY: SCREEN COMPARISON: 06/12/2021, 04/19/2019 Bilateral CC and MLO with tomosynthesis and synthetic mammography submitted. Computer aided detection analyzed. Breast composition: The breasts are heterogeneously dense, which may obscure small masses. Patchy asy mmetry in the upper outer quadrant of the LEFT breast has been present on prior studies but appears m ore pronounced and prominent today. Recommend additional imaging. Otherwise no suspicious mass or heather cification. Breast: Spot compression views (exaggerated lateral CC and MLO). True ML. Ultrasound to follow if abn ormality persists. MM/MM scr BI tomosynthesis [id number] IMPRESSION: BI-RADS: 0 - Incomplete: Need additional imaging evaluation FOLLOW UP: Need Additional Imaging
--- NOTE | 2023-12-22 10:59 | MR_ITS ---
WS: [id number] MRI LUMBAR SPINE NONCONTRAST TECHNIQUE: Sagittal T1, T2 and STIR imaging. Axial T1 and T2 imaging. CLINICAL INFORMATION: LOW BACK PAIN/PAIN IN TSPINE/ABNORMAL WEIGHT LOSS COMPARISON: None. FINDINGS: Mild lumbar curve. No acute compression. No high-grade central canal stenosis. L1-L2: Mild facet arthropathy. Spinal canal and foramen are patent. L2-L3: No significant disc bulging. Mild facet arthropathy. Spinal canal and foramen are patent. L3-L4: Mild annular bulging. Mild facet arthropathy. Slight narrowing of the subarticular recess bila terally. Foramen are patent. L4-L5: Mild annular bulging. Impingement of the LEFT greater than RIGHT subarticular recess and trave rsing L5 nerve roots. Mild facet arthropathy. Tiny annular fissure. Foramen are patent. L5-S1: Mild annular bulging. Mild facet arthropathy. Spinal canal and foramen are patent. Visualized pelvic bony structures: Normal. Paravertebral soft tissues: Normal. MR/MR lumbar spine wo con* [id number] IMPRESSION: 1. Mild lumbar curve. No acute compression. No high-grade central canal stenos is. 2. Mild annular bulge L4-5 with mild central canal stenosis. Impingement of th e traversing LEFT greater than RIGHT L5 nerve roots. 3. Mild LEFT L4-5 foraminal narrowing. 4. Mild narrowing of the subarticular recess L3-4 with mild annular bulging. 5. Mild facet arthropathy L3-L5.
== END 2023-12-22 10:46 | disposition home or self-care (01) ==
LOC: RAD 10:46
PROVIDERS: PCP Family Medicine; Visit Provider Family Medicine
DX: Z12.31 Encounter for screening mammogram for malignant neoplasm of breast (principal); R92.333 Mammographic heterogeneous density, bilateral breasts; N63.21 Unspecified lump in the left breast, upper outer quadrant; M54.16 Radiculopathy, lumbar region
CPT/HCPCS: 72148; 77063; 77067

== ENCOUNTER → 2024-01-25 10:50 | Outpatient (BNVA) | payer MEDICARE, SELFPAY | PROVIDERS: PCP Family Medicine; Visit Provider Nurse Practitioner Family | DX: L57.8 Other skin changes due to chronic exposure to nonionizing radiation (principal); L57.0 Actinic keratosis; L70.0 Acne vulgaris; D22.39 Melanocytic nevi of other parts of face | CPT/HCPCS: 99204 ==

== ENCOUNTER 2024-02-07 08:37 | Outpatient (CLI) | payer MEDICARE, SELFPAY ==
--- NOTE | 2024-02-07 08:42 | MM_ITS ---
WS: [id number] ADDITIONAL VIEWS LEFT MAMMOGRAM with tomosynthesis. LEFT BREAST ULTRASOUND HISTORY: ABNORMAL MAMMO OF L BREAST COMPARISON: 12/22/2023, 06/12/2021, 04/19/2019 LEFT MAMMOGRAM: Spot compression views and true ML with tomosynthesis and sympathetic mammography. Asymmetry persists in the upper outer quadrant of the LEFT breast. There is no architectural distorti on. There is some improvement with the spot compression views. Ultrasound to follow. LEFT BREAST ULTRASOUND 2-D and color Doppler imaging submitted. No areas of shadowing or mass in the LEFT upper outer quadrant. Dense fibroglandular tissue correspon ds to the mammographic abnormality. MM/MM diag LT tomosynthesis [id number] IMPRESSION: BI-RADS: 2- Benign FOLLOW UP: 1 Year Follow-up Return to annual screening mammography.
== END 2024-02-07 08:38 | disposition home or self-care (01) ==
LOC: RAD 08:38
PROVIDERS: PCP Family Medicine; Visit Provider Family Medicine
DX: R92.8 Other abnormal and inconclusive findings on diagnostic imaging of breast (principal); N64.89 Other specified disorders of breast; R92.322 Mammographic fibroglandular density, left breast
CPT/HCPCS: 76642; 77061; G0279

== ENCOUNTER → 2024-12-12 08:33 | Outpatient (BNVA) | payer MEDICARE, SELFPAY | PROVIDERS: PCP Family Medicine; Visit Provider Family Medicine | DX: Z87.19 Personal history of other diseases of the digestive system (principal); R53.83 Other fatigue; Z13.6 Encounter for screening for cardiovascular disorders; Z11.59 Encounter for screening for other viral diseases; E55.9 Vitamin D deficiency, unspecified | CPT/HCPCS: 80053; 80061; 82306; 82607; 84439; 84443; 85025; 86803 ==